=== PATIENT | female | born 1980 | race Caucasian/White ===

== ENCOUNTER 2020-02-01 14:21 | Emergency (ER) | payer MEDICAID, SELFPAY ==
[~2020-02-01] VITALS: Ht 167.6 cm; Wt 122.5 kg
[2020-02-01 14:51] VITALS: Ht 167.6 cm; Wt 122.5 kg
[2020-02-01 15:39] VITALS: BP 140/96
== END 2020-02-01 16:29 | disposition home or self-care (01) ==
LOC: ED 14:21
DX: U07.1 COVID-19 (principal)
CPT/HCPCS: U0003